=== PATIENT | female | born 2000 | race African-American/Black ===

== ENCOUNTER 2019-09-16 11:21 | Emergency (ER) | payer MEDICAID ==
[~2019-09-16] VITALS: Ht 160 cm; Wt 74.4 kg
[~2019-09-16 11:21] MED LIST: FLONASE16 GM NASAL; PROMETHAZINE-C118 M1 ORAL; ZYRTEC10 M3 ORAL
[2019-09-16 11:36] VITALS: BP 127/88
--- NOTE | 2019-09-16 11:45 | NUR ---
ED Nurse Note: Patient walked into ED from home c/o congestion, sorethroat, coughing for almost 1 week. patient reports hx of asthma and using inhaler which does not improve her sx at this time. patient is alert awake x4 breathing unlabored and even, speaking in full sentences. patient in bed, her friend by the bedside.
[2019-09-16] MEDS: Ipratropium 0.02% Inh Soln 2.5ml UD HHN SCH (13:04)
[2019-09-16] MEDS: Albuterol ud Inhalation HHN SCH (13:04)
[2019-09-16] MEDS ORDERED: PREDNISONE20 MG ORAL ×3 (14:22→14:53)
--- NOTE | 2019-09-16 14:23 | Emergency Room Report ---
History of Present Illness General Chief Complaint: Dyspnea/Respdistress Source: Patient, Medical Record Present Illness HPI 18-year-old female with history of asthma who presents to emergency room with 1 week of nasal congestion and difficulty breathing. Patient states she used her albuterol inhaler close to 15-20 times in the last 24 hours with minimal improvement. She denies any prior history of intubation or hospitalization recently. She has not been on steroids recently. Patient does not smoke cigarettes. Patient states that she has a dry cough with no sputum production. Cough symptoms started 3 to 4 days ago but worsened over the last 24 hours. Allergies: Coded Allergies: No Known Allergies (Unverified , 12/25/14) Patient History Past Medical History: asthma Past Surgical History: none Social History: Denies: smoking Last Menstrual Period: 08/24/2019 Now: No Nursing Documentation-PM Hx Asthma: Yes Review of Systems Constitutional: Denies: chills, fever ENT: Reports: nose congestion Respiratory: Reports: cough, shortness of breath, wheezing Cardiovascular: Denies: chest pain, palpitations Gastrointestinal: Denies: diarrhea, vomiting Genitourinary: Denies: hematuria, pain Musculoskeletal: Denies: joint swelling Skin: Denies: rash, lesions Neurological: Denies: headache, dizziness Physical Exam Vital Signs Date Time Temp Pulse Resp B/P (MAP) Pulse Ox O2 Delivery O2 Flow Rate FiO2 09/16/19 11:36 98.4 90 15 127/88 94 Room Air 09/16/19 13:05 21 Sp02 EP Interpretation: reviewed General Appearance: well appearing, no apparent distress, non-toxic Head: normocephalic, atraumatic Eyes: bilateral eye normal inspection ENT: hearing grossly normal, EOM grossly intact, moist mucus membranes Neck: supple Respiratory: normal inspection, chest non-tender, no rhonchi, no respiratory distress, no retraction, no accessory muscle use, speaking full sentences, wheezing, chest symmetrical Cardiovascular #1: regular rate, rhythm, normal capillary refill Cardiovascular #2: 2+ radial (R), 2+ radial (L) Gastrointestinal: soft, non-distended Rectal: deferred Musculoskeletal: moves extm spontaneously, no lower extremity edema Neurologic: grossly normal Psychiatric: mood/affect normal Skin: warm/dry, normal turgor Medical Decision Making Diagnostic Impression: Primary Impression: Asthma exacerbation ER Course 18-year-old female presents with wheezing worsening over the last 24 hours. Has a history of asthma not improving with her inhaler. She did not get influenza vaccination this year. Concern for asthma exacerbation with underlying viral illness versus influenza. Will test for influenza and give patient nebulizers and steroids. INFLUENZA A ANTIGEN Final INFLUENZAE A RESULT NEGATIVE CALLED TO AND READ BACK ROSALIA Yoo RN INFLUENZA B ANTIGEN Final INFLUENZAE B RESULT NEGATIVE CALLED TO AND READ BACK ROSALIA Yoo RN Lab Results Impression Influenza negative Reevaluation Time: 14:21 Last Vital Signs Date Time Temp Pulse Resp B/P (MAP) Pulse Ox O2 Delivery O2 Flow Rate FiO2 09/16/19 13:05 85 18 99 Room Air 21 96 18 100 09/16/19 11:36 98.4 127/88 (101) Status: improved Reevaluation Impression Patient's wheezing fully resolved. Patient speaking in full sentences. Patient has no signs of airway compromise or respiratory distress. Patient is stable for outpatient follow-up and discharge. Patient prescribed steroids, new nebulizer, and albuterol inhaler and nebulizer solution. Patient recommended to take regularly for the next 2 days and take as needed every 4 hours afterwards. Patient recommend to follow-up with primary care doctor or clinic. Disposition: HOME, SELF-CARE Condition: Stable Scripts Nebulizer (Aeroneb Go Nebuliser) 1 Each Each EACH , #1 Prov: Alex Oliveira M.D. 09/16/19 Albuterol Sulfate* (ALBUTEROL SULFATE HHN*) 2.5 Mg/3 Ml Vial.neb 2.5 MG HHN Q4H PRN for Shortness of Breath, #25 VIAL Prov: Alex Oliveira M.D. 09/16/19 Albuterol Sulfate* (ALBUTEROL SULFATE MDI*) 8.5 Gm Hfa.aer.ad 2 PUFF INH Q4H PRN for cough/wheezing, #1 EA 0 Refills Prov: Alex Oliveira M.D. 09/16/19 Prednisone* (PREDNISONE*) 20 Mg Tablet 40 MG ORAL DAILY for 5 Days, #5 TAB Prov: Alex Oliveira M.D. 09/16/19 Referrals: NOT CHOSEN JETHRO/,REFERRING (PCP) [facility] Patient Instructions: Asthma, Adult Additional Instructions: Please follow-up with your primary care doctor or clinic listed in the next 2 to 3 days for reevaluation. Take 5 days of steroids as prescribed. Return to emergency room if worsening shortness of breath, fever, or any new symptoms Alex Oliveira M.D. Sep 16, 2019 14:23
[2019-09-16 14:30] VITALS: BP 120/82
[2019-09-16 14:39] VITALS: BP 120/82
--- NOTE | 2019-09-16 14:39 | NUR ---
ER DISCHARGE NOTE: Patient is cleared to be discharged per AALIYAH MARCH, pt is aox4, on room air, with stable vital signs. pt was given dc and prescription instructions, pt was able to verbalize understanding, pt id band removed without complications. pt is able to ambulate with steady gait. pt took all belongings.
[2019-09-16] MEDS ORDERED: AERONEB GO NEB1 EACH MC (14:53)
[2019-09-16] MEDS ORDERED: ALBUTEROL SULF8.5 GM INH (14:53)
[2019-09-16] MEDS ORDERED: ALBUTEROL2.5 MG/3 M HHN (14:53)
== END 2019-09-16 14:39 | disposition home or self-care (01) ==
LOC: EMR 13:11
DX: J45.901 Unspecified asthma with (acute) exacerbation (principal)
CPT/HCPCS: 86710; 94640; 94664; J7512; Z7502; 99284